=== PATIENT | male | born 1960 | race African-American/Black ===

== ENCOUNTER 2018-04-28 20:26 | Emergency (ER) | payer SELFPAY ==
[~2018-04-28] VITALS: Ht 165.1 cm; Wt 72.6 kg
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
[2018-04-28] MEDS ORDERED: Bacitracin Oint UD TOPIC ONE (21:15)
[2018-04-28] MEDS ORDERED: IBUPROFEN600 MG ORAL (21:54)
[2018-04-28 21:57] VITALS: BP 146/68
--- NOTE | 2018-04-29 10:46 | Diagnostic Imaging Report ---
Indication: Back pain Comparison: None Findings: 3 views of the lumbar spine were obtained. There is mild narrowing at L5-S1 discs. There is suggestion of mild sclerosis of the lower lumbar facets. Minimal endplate spurs are present. No acute fractures appreciated. There is no malalignment seen. IMPRESSION: Minimal degenerative changes noted. No acute injury
--- NOTE | 2018-04-29 10:46 | Diagnostic Imaging Report ---
Indication: Neck Pain Findings: 3 views of the cervical spine were obtained. Moderate degenerative changes of the cervical spine are demonstrated. This is characterized by vertebral endplate osteophyte formation and narrowing of intervertebral discs. The bones are osteopenic. There is no acute fracture identified. Alignment is normal. The open-mouth odontoid view shows an intact dens and good alignment of the lateral masses with respect to the body of C2. There is no soft tissue swelling. Impression: Moderate degenerative spondylosis.
--- NOTE | 2018-04-29 10:58 | Diagnostic Imaging Report ---
Indication: Pain Comparison: None Findings: Two views of the left tibia and fibula were obtained. There is evidence of an acute fracture involving the head of the fibula. There is a old fracture involving the mid shaft of the fibula which appears slightly expansile. IMPRESSION: Acute fracture involving the head of the fibula. Old fracture involving the mid fibular shaft.
== END 2018-04-28 22:00 | disposition home or self-care (01) ==
LOC: EDBD 20:26 → EMR 21:06
DX: L97.829 Non-pressure chronic ulcer of other part of left lower leg with unspecified severity (principal); S16.1XXA Strain of muscle, fascia and tendon at neck level, initial encounter; S39.012A Strain of muscle, fascia and tendon of lower back, initial encounter; S80.12XA Contusion of left lower leg, initial encounter; X58.XXXA Exposure to other specified factors, initial encounter; Y92.9 Unspecified place or not applicable
CPT/HCPCS: 72020; 72040; 99283